=== PATIENT | female | born 1950 | race Caucasian/White ===

== ENCOUNTER 2018-04-05 16:31 | Emergency (ER) | payer BC, MEDICARE ==
[2018-04-05] MEDS ORDERED: Lidocaine 1% 20 ML MDV ONE (16:43)
[2018-04-05] MEDS ORDERED: Adacel (T-DAP) 0.5 ML VIAL ONE (16:51)
== END 2018-04-05 17:03 | disposition home or self-care (01) ==
LOC: BURERS 16:31
DX: S91.114A Laceration without foreign body of right lesser toe(s) without damage to nail, initial encounter (principal); E11.9 Type 2 diabetes mellitus without complications; E78.5 Hyperlipidemia, unspecified; I10 Essential (primary) hypertension; Z79.84 Long term (current) use of oral hypoglycemic drugs; Z79.899 Other long term (current) drug therapy; W22.8XXA Striking against or struck by other objects, initial encounter
CPT/HCPCS: 12001; 90471; 90715; J2001